=== PATIENT | female | born 1990 | race Caucasian/White ===

== ENCOUNTER 2018-06-07 16:51 | Emergency (ER) | payer MEDICAID ==
--- NOTE | 2018-06-07 17:04 | EDPHY ---
H & P Stated Complaint: intense sharp pelvic pain, feels like IUD is out of place Time Seen by Provider: 06/07/18 17:04 HPI/ROS: CHIEF COMPLAINT: Pelvic pain HISTORY OF PRESENT ILLNESS: The patient presents to the ED with complaints of pelvic pain that is been worsening over the past several weeks. The patient attributes his symptoms possibly to an IUD which was placed 2 months ago. She reports that after the IUD was placed she has had a total for urinary tract infections. She has had no pelvic exam were evaluation of her IUD position. The patient denies [place] vaginal bleeding or heavy discharge. She does report symptoms of dysuria. She reports sharp lower pelvic pain. The patient denies fever, back pain, rash or additional medical complaints. She denies past surgical history. She denies additional acute complaints. REVIEW OF SYSTEMS: A comprehensive 10 point review of systems is otherwise negative aside from elements mentioned in the history of present illness. Source: Patient - Personal History LMP (Females 10-55): IUD In Place Current Tetanus/Diphtheria Vaccine: Unsure Current Tetanus Diphtheria and Acellular Pertussis (TDAP): Unsure - Medical/Surgical History Hx Asthma: No Hx Chronic Respiratory Disease: No Hx Diabetes: No Hx Cardiac Disease: No Hx Renal Disease: No Hx Cirrhosis: No Hx Alcoholism: No Hx HIV/AIDS: No Hx Splenectomy or Spleen Trauma: No - Social History Smoking Status: Never smoked - Physical Exam Exam: General Appearance: Alert, no distress Eyes: Pupils equal and round no pallor or injection ENT, Mouth: Mucous membranes moist Respiratory: There are no retractions, lungs are clear to auscultation Cardiovascular: Regular rate and rhythm Gastrointestinal: Suprapubic tenderness to palpation Neurological: 5/5 strength noted all 4 extremities Skin: Warm and dry, no rashes Musculoskeletal: Neck is supple nontender Extremities: symmetrical, full range of motion Constitutional: Initial Vital Signs Temperature (C) 36.7 C 06/07/18 16:55 Heart Rate 92 06/07/18 16:55 Respiratory Rate 18 06/07/18 16:55 Blood Pressure 132/71 H 06/07/18 16:55 O2 Sat (%) 97 06/07/18 16:55 O2 Delivery Mode Room Air Allergies/Adverse Reactions: No Known Allergies Allergy (Unverified 06/07/18 16:59) Medical Decision Making ED Course/Re-evaluation: Patient presents to the ED with complaints of pain from her IUD. The patient's test is negative. She was taken for an ultrasound which demonstrates a normal IUD position. The patient has a negative urinalysis the emergency department. I informed the patient that the IUD is in normal position. The patient has been given the contact number of our on-call department of sociology chair to schedule a follow-up appointment to discuss possible removal of her IUD in the setting of her pain. Differential Diagnosis: Differential diagnosis considered includes ectopic , PID, IUD malposition, dehydration, metabolic derangement, urinary tract infection - Data Points Laboratory Results: Laboratory Results 06/07/18 17:32 06/07/18 17:32 06/07/18 06/07/18 06/07/18 18:58 17:32 17:32 WBC RBC Hgb Hct MCV MCH MCHC RDW Plt Count MPV Neut % (Auto) Lymph % (Auto) [place] % (Auto) Eos % (Auto) Baso % (Auto) Nucleat RBC Rel Count Absolute Neuts (auto) Absolute Lymphs (auto) Absolute Monos (auto) Absolute Eos (auto) Absolute Basos (auto) Absolute Nucleated RBC Immature Gran % Immature Gran # Sodium 136 mEq/L mEq/L (135-145) Potassium 4.1 mEq/L mEq/L (3.5-5.2) Chloride 106 mEq/L mEq/L (97-110) Carbon Dioxide 24 mEq/l mEq/l (22-31) Anion Gap 6 mEq/L mEq/L (6-14) BUN 14 mg/dL mg/dL (7-23) Creatinine 0.7 mg/dL mg/dL (0.6-1.0) Estimated GFR > 60 Glucose 86 mg/dL mg/dL (70-100) Calcium 9.2 mg/dL mg/dL (8.5-10.4) Beta HCG, Qual NEGATIVE Urine Color YELLOW Urine Appearance TURBID Urine pH 7.0 (5.0-7.5) Ur Specific [place] 1.020 (1.002-1.030) Urine Protein NEGATIVE (NEGATIVE) Urine Ketones NEGATIVE (NEGATIVE) Urine Blood NEGATIVE (NEGATIVE) Urine Nitrate NEGATIVE (NEGATIVE) Urine Bilirubin NEGATIVE (NEGATIVE) Urine Urobilinogen NEGATIVE EU EU (0.2-1.0) Ur Leukocyte Esterase NEGATIVE (NEGATIVE) Urine Glucose NEGATIVE (NEGATIVE) 06/07/18 17:32 WBC 6.06 10^3/uL 10^3/uL (3.80-9.50) RBC 4.43 10^6/uL 10^6/uL (4.18-5.33) Hgb 12.4 g/dL L g/dL (12.6-16.3) Hct 36.8 % L % (38.0-47.0) MCV 83.1 fL fL (81.5-99.8) MCH 28.0 pg pg (27.9-34.1) MCHC 33.7 g/dL g/dL (32.4-36.7) RDW 12.3 % % (11.5-15.2) Plt Count 256 10^3/uL 10^3/uL (150-400) MPV 9.8 fL fL (8.7-11.7) Neut % (Auto) 60.9 % % (39.3-74.2) Lymph % (Auto) 29.0 % % (15.0-45.0) [place] % (Auto) 7.4 % % (4.5-13.0) Eos % (Auto) 1.3 % % (0.6-7.6) Baso % (Auto) 1.2 % % (0.3-1.7) Nucleat RBC Rel Count 0.0 % % (0.0-0.2) Absolute Neuts (auto) 3.69 10^3/uL 10^3/uL (1.70-6.50) Absolute Lymphs (auto) 1.76 10^3/uL 10^3/uL (1.00-3.00) Absolute Monos (auto) 0.45 10^3/uL 10^3/uL (0.30-0.80) Absolute Eos (auto) 0.08 10^3/uL 10^3/uL (0.03-0.40) Absolute Basos (auto) 0.07 10^3/uL 10^3/uL (0.02-0.10) Absolute Nucleated RBC 0.00 10^3/uL 10^3/uL (0-0.01) Immature Gran % 0.2 % % (0.0-1.1) Immature Gran # 0.01 10^3/uL 10^3/uL (0.00-0.10) Sodium Potassium Chloride Carbon Dioxide Anion Gap BUN Creatinine Estimated GFR Glucose Calcium Beta HCG, Qual Urine Color Urine Appearance Urine pH Ur Specific [place] Urine Protein Urine Ketones Urine Blood Urine Nitrate Urine Bilirubin Urine Urobilinogen Ur Leukocyte Esterase Urine Glucose Departure - Departure Disposition: Home, Routine, Self-Care Clinical Impression: Pelvic pain in female Condition: Good Instructions: Pelvic Pain (ED) Additional Instructions: 1. Take Ibuprofen or Motrin 600 mg by mouth three times a day. 2. [place] as needed for severe pain 3. The ultrasound demonstrates a normal IUD location. There is no evidence of a ovarian cyst or other abnormality. 4. Please follow up with a department of sociology chair you have been referred to for any ongoing pelvic discomfort. Referrals: Nadine Iraheta MD [Medical Doctor] - As per Instructions
[2018-06-07 17:49] LABS: PLATELET COUNT 256 10^3/uL (150-400)
[2018-06-07 21:01] VITALS: BP 128/73
[2018-06-08 11:36] LABS: GC AMPLIFICATION GENPROBE NEGATIVE (NEGATIVE)
== END 2018-06-07 21:02 | disposition home or self-care (01) ==
LOC: EDBD 16:51
PROC: 0UPD7HZ Removal of Contraceptive Device from Uterus and Cervix, Via Natural or Artificial Opening (ICD-10-PCS; principal; 2018-06-07)
DX: Z30.432 Encounter for removal of intrauterine contraceptive device (principal)

== ENCOUNTER 2018-08-16 16:11 | Emergency (ER) | payer MEDICAID ==
--- NOTE | 2018-08-16 16:24 | EDPHY ---
H & P Stated Complaint: L ARM/CHEST PAIN AND SOB SINCE LAST NIGHT/ALSO HAVINGL TOOTH INFEC Time Seen by Provider: 08/16/18 16:24 - Personal History LMP (Females 10-55): 8-14 Days Ago Current Tetanus Diphtheria and Acellular Pertussis (TDAP): Yes - Medical/Surgical History Hx Asthma: No Hx Chronic Respiratory Disease: No Hx Diabetes: No Hx Cardiac Disease: No Hx Renal Disease: No Hx Cirrhosis: No Hx Alcoholism: No Hx HIV/AIDS: No Hx Splenectomy or Spleen Trauma: No Other PMH: DENIES - Social History Smoking Status: Never smoked Constitutional: Initial Vital Signs Temperature (C) 37.1 C 08/16/18 16:14 Heart Rate 90 08/16/18 16:14 Respiratory Rate 18 08/16/18 16:14 Blood Pressure 128/78 H 08/16/18 16:14 O2 Sat (%) 98 08/16/18 16:14 O2 Delivery Mode Room Air Allergies/Adverse Reactions: No Known Allergies Allergy (Verified 08/16/18 16:12) Home Medications: Medication Instructions Recorded Flexeril 10 MG (*) 08/16/18 Medical Decision Making ED Course/Re-evaluation: CHIEF COMPLAINT: Pain in left arm, shortness of breath HISTORY OF PRESENT ILLNESS: The patient is a 28 y/o female complaining of pain in her left arm, shortness of breath, and a tooth ache. In the last several months she has had four UTI's and placed on antibiotics. She then developed right tooth pain and had a root canal. She was placed on an additional antibiotic for this. Several days after the root canal, she developed left lower tooth pain. She has seen multiple specialists and had normal x-rays that did not reveal an infection. However, her pain has persisted and she is scheduled to see an wheat shipper in 2 weeks. Last night she developed a stabbing pain in her left arm and is now concerned that an infection "is spreading to my body". No fever, headache, body aches, lightheadedness, chest pain, heart palpitations, shortness of breath, cough, abdominal pain, urinary or bowel complaints, numbness, paresthesias. REVIEW OF SYSTEMS: A comprehensive 10 system review of systems is otherwise negative aside from elements mentioned in the history of present illness and medical decision making. PHYSICAL EXAM: HR, BP, O2 Sat, RR. Temp noted General Appearance: Tearful and anxious, alert, well hydrated, appropriate, and non-toxic appearing. Head: Atraumatic without scalp tenderness or obvious injury Eyes: Pupils equal, round, reactive to light and accommodation, EOMI, no trauma , no injection. Ears: Clear bilaterally, no perforation, normal landmarks Nose: Atraumatic, no rhinorrhea, clear. Throat: There is no erythema or exudates, no lesions, normal tonsils, mucus membranes moist. Neck: Supple, 2+ carotid upstroke, nontender, no lymphadenopathy. Respiratory: No retractions, no distress, no wheezes, and no accessory muscle use. Lungs are clear to auscultation bilaterally. Cardiovascular: Regular rate and rhythm, no murmurs, rubs, or gallops. Bilateral carotid, radial, dorsalis pedis, and posterior tibial pulses intact. Good capillary refill all extremities. Gastrointestinal: Abdomen is soft, nontender, non-distended, no masses, no rebound, no guarding, no peritoneal signs. Musculoskeletal: Normal active ROM of all extremities, atraumatic. Neurological: Alert, appropriate, and interactive. The patient has normal DTRs and non-focal cranial nerves, motor, sensory, and cerebellar exam. Skin: No rashes, good turgor, no nodules on palpation. Past medical history: Frequent UTI's Past surgical history: Denies Family history: Denies Social history: Lives in [place], single, employed DIAGNOSTICS/PROCEDURES/CRITICAL CARE TIME: Not indicated. DIFFERENTIAL DIAGNOSIS: The differential diagnosis for the patient's tooth pain includes but is not limited to tooth ache, dental abscess, dental infection, sepsis. MEDICAL DECISION MAKING: The patient is a 28 y/o female complaining of pain in her left arm, shortness of breath, and a tooth ache. Several days after having a right-sided root canal , she developed left lower tooth pain. She has seen multiple specialists and had normal x-rays that did not reveal an infection. Last night she developed a stabbing pain in her left arm and is now concerned that an infection "is spreading to my body". On exam she is tearful and anxious. However, there are no dental exam findings and she is not systemically sick. Labs ordered to check WBC. 1713: Patient's labs are normal and do not reveal signs of infection. 1730: Reassessed patient and discussed unremarkable labs. I have prescribed her Ativan for anxiety. I have advised her to follow up with her PCP or dentist. Return precautions provided; patient is comfortable with this plan. - Data Points Laboratory Results: Laboratory Results 08/16/18 16:30 08/16/18 16:30 08/16/18 08/16/18 08/16/18 16:30 16:30 16:30 WBC 5.41 10^3/uL 10^3/uL (3.80-9.50) RBC 4.58 10^6/uL 10^6/uL (4.18-5.33) Hgb 12.4 g/dL L g/dL (12.6-16.3) Hct 37.6 % L % (38.0-47.0) MCV 82.1 fL fL (81.5-99.8) MCH 27.1 pg L pg (27.9-34.1) MCHC 33.0 g/dL g/dL (32.4-36.7) RDW 13.5 % % (11.5-15.2) Plt Count 263 10^3/uL 10^3/uL (150-400) MPV 9.8 fL fL (8.7-11.7) Neut % (Auto) 71.6 % % (39.3-74.2) Lymph % (Auto) 20.9 % % (15.0-45.0) [place] % (Auto) 5.7 % % (4.5-13.0) Eos % (Auto) 0.7 % % (0.6-7.6) Baso % (Auto) 0.9 % % (0.3-1.7) Nucleat RBC Rel Count 0.0 % % (0.0-0.2) Absolute Neuts (auto) 3.87 10^3/uL 10^3/uL (1.70-6.50) Absolute Lymphs (auto) 1.13 10^3/uL 10^3/uL (1.00-3.00) Absolute Monos (auto) 0.31 10^3/uL 10^3/uL (0.30-0.80) Absolute Eos (auto) 0.04 10^3/uL 10^3/uL (0.03-0.40) Absolute Basos (auto) 0.05 10^3/uL 10^3/uL (0.02-0.10) Absolute Nucleated RBC 0.00 10^3/uL 10^3/uL (0-0.01) Immature Gran % 0.2 % % (0.0-1.1) Immature Gran # 0.01 10^3/uL 10^3/uL (0.00-0.10) Sodium 139 mEq/L mEq/L (135-145) Potassium 3.6 mEq/L mEq/L (3.5-5.2) Chloride 105 mEq/L mEq/L (97-110) Carbon Dioxide 23 mEq/l mEq/l (22-31) Anion Gap 11 mEq/L mEq/L (6-14) BUN 11 mg/dL mg/dL (7-23) Creatinine 0.6 mg/dL mg/dL (0.6-1.0) Estimated GFR > 60 Glucose 112 mg/dL H mg/dL (70-100) Calcium 9.5 mg/dL mg/dL (8.5-10.4) Beta HCG, Qual NEGATIVE Departure - Departure Disposition: Home, Routine, Self-Care Clinical Impression: Toothache, Anxiety Condition: Good Instructions: Toothache (ED), Anxiety (ED) Additional Instructions: 1. Take silver colloid or iodine drops or an alternative to an antibiotic. I recommend going to [facility] to see their recommendations. 2. Follow-up with your dentist within one week. 3. Return to the ED for fever, difficulty swallowing, increase in swelling or other concerns. 4. Take Ativan as prescribed for anxiety. Referrals: [facility],. [Clinic] - As per Instructions [facility] [Outside] - As per Instructions Report Scribed for: Prabhu Montoya Report Scribed by: Kirsten Peck Date of Report: 08/16/18 Time of Report: 16:24
[2018-08-16 17:10] LABS: PLATELET COUNT 263 10^3/uL (150-400)
[2018-08-16] MEDS ORDERED: LORAZEPAM 1 MG PREPACK#4 BTL TAKEHOME ONE (17:34)
[2018-08-16 18:09] VITALS: BP 115/81
--- NOTE | 2018-08-16 20:02 | CPEKG ---
Test Reason : OPEN Blood Pressure : / mmHG Vent. Rate : 086 BPM Atrial Rate : 087 BPM P-R Int : 148 ms QRS Dur : 091 ms QT Int : 385 ms P-R-T Axes : 070 042 008 degrees QTc Int : 461 ms Sinus rhythm Left atrial enlargement Borderline T abnormalities, inferior leads Confirmed by Prabhu Montoya ([id number] on 08/16/2018 8:02:17 PM Referred By: Prabhu Montoya Confirmed By:Prabhu Montoya
== END 2018-08-16 18:07 | disposition home or self-care (01) ==
DX: K08.89 Other specified disorders of teeth and supporting structures (principal); F41.9 Anxiety disorder, unspecified; M79.602 Pain in left arm; R06.02 Shortness of breath; Z87.440 Personal history of urinary (tract) infections